=== PATIENT | male | born 1960 | race Caucasian/White ===

== ENCOUNTER 2018-11-14 21:18 | Emergency (ER) | payer OTHER ==
[~2018-11-14] VITALS: Ht 188 cm; Wt 92.0 kg
[2018-11-14 21:27] VITALS: BP 200/116
[2018-11-14] MEDS ORDERED: LIDOcaine 1% w/epiNEPHrine 1:200,000 30ml vial IM ONE (23:55)
== END 2018-11-15 00:48 | disposition home or self-care (01) ==
LOC: ER 21:19
DX: S61.214A Laceration without foreign body of right ring finger without damage to nail, initial encounter (principal); W26.8XXA Contact with other sharp object(s), not elsewhere classified, initial encounter; Y93.89 Activity, other specified; Y92.89 Other specified places as the place of occurrence of the external cause; Y99.8 Other external cause status
CPT/HCPCS: 12001; 99283